=== PATIENT | female | born 1990 | race Caucasian/White ===

== ENCOUNTER 2020-09-10 02:26 | Outpatient (CLI) | payer MEDICAID, SELFPAY ==
[2020-09-10 15:02] LABS: Abs Immature Grans 0.07 10^3/uL (0.0-0.06); Absolute Basophil Count 0.01 10^3/uL (0.0-0.2); Absolute Eosinophil Count 0.04 10^3/uL (0.0-0.7); Absolute Monocyte Count 0.56 10^3/uL (0.1-0.8); Absolute Neutrophil Count 8.13 10^3/uL (1.2-6.7); Basophils % 0.1; Eosinophils % 0.4; HCT 34.3 % (36.0-46.0); HGB 11.6 g/dL (11.2-15.7); Immature Grans % 0.7; Lymphocytes % 17.7; MCH 28.9 pg (27.0-33.0); MCHC 33.8 % (32.0-36.0); MCV 85.3 fL (80-95); MPV 10.4 fL (8.0-11.0); Monocytes % 5.2; Neutrophils % 75.9; Nucleated RBC 0 %; Platelet Count 232 10^3/uL (130-400); RBC 4.02 10^6/uL (3.93-5.22); RDW 12.6 % (11.7-14.6); RDW-SD 39.4 fL; WBC 10.71 10^3/uL (4.4-10.8)
[2020-09-10 15:16] LABS: Glucose 119 mg/dL (74-106)
[2020-09-10 16:47] LABS: Hemoglobin A1C 5.1 % (<5.7)
[2020-09-14 14:18] LABS: HIV-1/2 Ag & Ab Screen Negative (Negative)
[2020-09-24 15:52] LABS: Syphilis Total Ab w/Reflex Nonreactive (Nonreactive); Varicella IgG Antibody Positive
== END 2020-09-10 02:46 ==
PROVIDERS: PCP Family Medicine; Visit Provider Advanced Practice Midwife
DX: Z34.91 Encounter for supervision of normal pregnancy, unspecified, first trimester (principal); Z11.4 Encounter for screening for human immunodeficiency virus [HIV]; Z01.84 Encounter for antibody response examination
CPT/HCPCS: 36415; 82947; 86787; 86850; 86900; 86901; 87389; 83036; 85025; 86780

== ENCOUNTER 2020-09-10 19:59 | Outpatient (REF) | payer MEDICAID, SELFPAY ==
[2020-09-10 21:39] LABS: *AMPHETAMINES SCREEN URINE Negative (Negative); *BARBITURATES SCREEN URINE POSITIVE (Negative); *BENZODIAZEPINES SCREEN URINE Negative (Negative); Cannabinoids THC POSITIVE (Negative); Cocaine Screen,Urine Negative (Negative); METHADONE URINE SCREEN Negative (Negative); OPIATES URINE SCREEN Negative (Negative)
[2020-09-10 22:14] LABS: Tricyclic Antidepressants Negative (Negative)
[2020-09-18 09:23] LABS: Buprenorphine Negative
== END 2020-09-10 20:19 ==
LOC: LBN 19:59
PROVIDERS: PCP Family Medicine; Visit Provider Advanced Practice Midwife
DX: Z34.91 Encounter for supervision of normal pregnancy, unspecified, first trimester (principal)
CPT/HCPCS: 80307; 87086

== ENCOUNTER 2020-09-15 03:21 | Outpatient (CLI) | payer MEDICAID, SELFPAY ==
[2020-09-15 07:58] LABS: Glucose,1 Hr (Glucola) 136 mg/dL (80-140)
== END 2020-09-15 03:41 ==
PROVIDERS: PCP Family Medicine; Visit Provider Obstetrics & Gynecology
DX: Z34.93 Encounter for supervision of normal pregnancy, unspecified, third trimester (principal); Z3A.36 36 weeks gestation of pregnancy
CPT/HCPCS: 36415; 82950

== ENCOUNTER 2020-09-28 02:57 | Outpatient (CLI) | payer MEDICAID, SELFPAY ==
[2020-09-28 09:50] LABS: Glucose 1 Hour 154 mg/dL
[2020-09-28 12:07] LABS: Glucose 3 Hour 128 mg/dL
[2020-09-28 14:18] LABS: *AMPHETAMINES SCREEN URINE Negative (Negative); *BARBITURATES SCREEN URINE POSITIVE (Negative); *BENZODIAZEPINES SCREEN URINE Negative (Negative); Cannabinoids THC POSITIVE (Negative); Cocaine Screen,Urine Negative (Negative); METHADONE URINE SCREEN Negative (Negative); OPIATES URINE SCREEN Negative (Negative)
[2020-09-28 14:22] LABS: Tricyclic Antidepressants Negative (Negative)
[2020-10-02 11:44] LABS: Buprenorphine Negative
== END 2020-09-28 03:17 ==
PROVIDERS: Advanced Practice Midwife; PCP Family Medicine; Visit Provider Advanced Practice Midwife
DX: Z34.93 Encounter for supervision of normal pregnancy, unspecified, third trimester (principal); Z36.85 Encounter for antenatal screening for Streptococcus B
CPT/HCPCS: 36410; 80307; 82951; 87081

== ENCOUNTER 2020-10-15 21:44 | Inpatient (IN) | payer MEDICAID, SELFPAY ==
[2020-10-15 22:50] VITALS: BP 112/76; PULSE 77
[2020-10-15 22:55] VITALS: BP 112/76; PULSE 77; RESP 18; TEMP 36.6
--- NOTE | 2020-10-15 22:56 | HPE_ITS ---
Date of service: 10/15/20 Time of Service: 22:56 Assessment and Plan Assessment and plan (1) 38 weeks gestation of : Status: Acute Assessment and plan: A: multipara, active labor, low risk Low risk for SD or PPH GBS negative P: Admit to BC, CBC and T&S, COVID swab Intermittent auscultation/expectant management after establishing category 1 tracing Comfort measures as desired Anticipate OB-HPI Labor/Delivery History of Present Illness Reason for Visit: R/O LABOR Chief Complaint: Uterine Contractions (Contractions irregularly all evening, become more intense after 2100, no ROM, no bleeding). RED Calculator Estimated Delivery Date Method Current WG Current Estimate 10/24/20 Ultrasound #1 38w 5d History of Present Expected Delivery Route/Plan - CNM FOB: Mann Mclean. (His fourth child, first with Magalie). GBS neg al Specific Issues/Plan 1. Transfer of care to [facility] @ 33.5 weeks. from [place] 2. MJ use aware of UDS and criteria for Vt. Safe poc. 2a. Pos THC and barbituate at 36 weeks,. Prescribed fioricet PRN, VT POSC done 10/06 with Olinda Quintero 3. Migraine - fioricet PRN, magnesium recommended daily 3a. Referral to Neuro ordered, Neuro attempted to schedule pt x3 without response from pt 10/05. 4. Elevated 1-hr GTT - 136. - 3-hr GTT scheduled 09/28/20 wnl x4. al 5. 09/28/20: 36 wk risk assessment low x3.al Assessment: History Reviewed & Current Review of Systems All systems reviewed & are unremarkable except as noted in HPI and below Constitutional Constitutional: Reports as per HPI Cardiovascular Cardiovascular: Reports system reviewed and no additional complaints, except as documented Respiratory Respiratory: Reports system reviewed and no additional complaints, except as documented Gastrointestinal Gastrointestinal: Reports as per HPI Genitourinary Genitourinary: Reports system reviewed and no additional complaints, except as documented Musculoskeletal Musculoskeletal: Reports system reviewed and no additional complaints, except as documented Neurologic Neurologic: Reports system reviewed and no additional complaints, except as documented Psychiatric Psychiatric: Reports as per HPI [facility] Medical History (Updated 10/15/20 @ 23:06 by Anita Childs) History of depression Migraines Surgical History (Updated 11/19/20 @ 14:40 by Virgilio Reddy CNM) H/O eye surgery Family History (Updated 09/10/20 @ 14:41 by Virgilio Reddy CNM) Brother Cancer midline carcinoma Social History (Updated 09/10/20 @ 14:43 by Virgilio Reddy CNM) Smoking/Tobacco Use Status: Former Tobacco Use Tobacco: How many years used: 12 Smoking risk assessment performed?: Yes Alcohol Intake: former Details: stopped w/ knowledge of Drug use: Daily Substance use type: marijuana Counseling given: Yes (09/10 20 al) Details: 09/10 20 handout given al Adopted: Yes Current gender identity: female History History 4 Para 2 Hx # Term Pregnancies 2 Multiple births 0 Hx # Pregnancies 0 Ectopic pregnancies 0 AB induced 1 Hx Number of Living Children 2 AB spontaneous 0 Past Pregnancies Del. Date GA/Weeks # Outcome Route Wgt Sex Labor Lgth Anesthes ia Location [facility] Complic 12/24/11 38 No Successful vaginal 8 lb 11 oz Male 8hrs [facility] 07/30/15 38 No Successful vaginal 8 lb 6 oz Female 8 hrs [facility] Delivery Date: 12/24/11 AllexAdrienne Mulkern, Kathleen Delivery Date: 07/30/15 Barbara, waterbirth Chelsie Arthur Meds Home Medications and Allergies Home Medications Medication Instructions Recorded Confirmed Type pediatric multivitamin 2 tab PO DAILY tab 08/19/20 10/13/20 History mgoyqossne-slcmlavdvqfef-lduhhwmc 1 cap PO TID PRN cap 10/13/20 10/13/20 History 50 mg-300 mg-40 mg capsule Allergies Allergy/AdvReac Type Severity Reaction Status Date / Time bee venom protein (honey bee) Allergy Severe Verified 10/13/20 14:37 Exam Physical Exam Vital signs: Pulse BP 77 112/76 10/15/20 22:50 10/15/20 22:50 Vital Signs Reviewed: Yes Constitutional Constitutional: moderate distress and average body habitus Detailed Labor and Delivery Exam Dilation: 6 Effacement (%): 100 station: -2 Cervix position: posterior Consistency: soft Amniotic Membrane Status: Intact Monitor Mode: External Contraction Frequency(min): every 2-3 minutes Contraction Intensity: Moderate/Strong Fetus A Heart Rate Baseline: 140 Monitor Accelerations: Present Monitor Decelerations: Early Variability: Moderate (6-25 BPM) Presentation: Cephalic Categories: Category I Est. Weight: 8 lb 2.514 oz Est. Weight: 3700 gm HEENT Exam HEENT Exam: Normal Neck Exam Neck Exam: Normal Chest/Brest/Axilla Exam Chest Exam: Normal Breast Exam Breast Exam: Normal Respiratory Exam Respiratory Exam: Normal Cardiovascular Exam Cardiovascular Exam: Normal Abdominal Exam Abdominal Exam: Normal (soft, nontender, gravid) Rectal Exam Rectal Exam: Not Done Exam Exam: Normal Extremities Exam Extremities Exam: Normal Back/Spine/Pelvis Exam Back Exam: Normal Pelvis Adequate: Yes Skin Exam Skin Exam: Normal Neurological Exam Neurological Exam: Normal Psychiatric Exam Psychiatric Exam: Normal Results Results Group Beta Strep: Negative Blood Type: A+ Rubella Status: Immune Varicella Immunity: Immune Risk Assessment Risk for Shoulder Dystocia Historical/Initial OB: NEGATIVE FOR: Pelvic Abnormality, Pre- BMI>30, Previous Shoulder Dystocia or Previous Macrosomia Increased Risk?: No Counselin09/10/20 al Date/Initial: iob as transfer 09/10/20 low risk al Delivery Plan @ 36wks: 09/28/20 elevated gct yet gtt of today nml x4. al Risk for Pre-Eclampsia Daily Dose ASA Indicated: No Date Initiated/Initials: 09/10/20 al Yes, if one or more: NEGATIVE FOR: Hx Pre-E/Gest HTN, Chronic HTN, Multiple Gestation, Pre-gestational DM, Renal Disease, Systemic Lupus or APA Syndrome Yes, if 2 or more: NEGATIVE FOR: Nulliparity, Age>= 35 yrs, >10yr btwn pregnancies, BMI>30, ethinicty, Mother/Sister w/ Pre-E or Previous IUGR Risk for Post- Hemorrhage Initial: NEGATIVE FOR: Multiple Gestation, Previous PPH, Known Clotting Deficiency, Grand Multiparity or Anticoagulation At Risk?: No Risks Reviewed Risks Reviewed Upon Admission: Yes
[2020-10-15 23:19] LABS: HCT 37.1 % (36.0-46.0); HGB 12.1 g/dL (11.2-15.7); MCH 28.1 pg (27.0-33.0); MCHC 32.6 % (32.0-36.0); MCV 86.1 fL (80-95); Platelet Count 244 10^3/uL (130-400); RBC 4.31 10^6/uL (3.93-5.22); RDW 14.1 % (11.7-14.6); WBC 13.96 10^3/uL (4.4-10.8)
[2020-10-15 23:21] LABS: Source Nasopharynx
[2020-10-15 23:38] VITALS: PULSE 80
[2020-10-15] MEDS: Oxytocin 10 UNITS/ML VIAL IM (23:55)
[2020-10-16] VITALS (11 sets, daily range): BP systolic 98–124; BP diastolic 53–69; PULSE 66–88; RESP 14–18; TEMP 36.7–36.9; O2SAT 97–98
[2020-10-16 00:01] LABS: Influenza A PCR Negative (Negative); Influenza B PCR Negative (Negative); RSV PCR Negative (Negative)
[2020-10-16 00:05] LABS: COVID-19 PCR POSITIVE (Negative)
--- NOTE | 2020-10-16 01:26 | W.OBDELIVERY ---
Date of service: 10/16/20 Time of Service: 01:26 OB Labor/ Delivery Information Baby A Delivery Delivery Method: Spontaneaous Presentation: Cephalic Cephalic Position: Vertex Vertex Position: Right Occipital Posterior Breech Position: N/A Cord Description-Baby A: 3 Vessels and Nuchal Cord (x1 reduced overhead) Amniotic Fluid: Clear Estimated Blood Loss: 250 Delivery Outcome: Liveborn Transferred: Remains with Mother Providers Nurse Clinical Admissions Manager: Anita Childs Nurse: Yahaira Keith Nurse: Katharine Savage Labor/Delivery Information Number of Babies in Womb: 1 Steroids Given: None Reason Steroids Not Administered: N/A Group Beta Strep: Negative Rubella Status: Immune Blood Type: A+ Varicella Immunity: Immune Maternal Complications: None Shoulder Dystocia: No Note: Pt arrived 6 cm dilated, within 20 minutes was feeling urges to push and requested to move to the tub, pt entered the tub @ 2220, urges to push increased steadily and pt began involuntarily bearing down, 2nd stage huddle completed, SVE in tub for full dilation @ 2342, SROM clear fluid shortly thereafter, of a vigorous female over intact perineum, loose nuchal cord reduced overhead, baby placed immediately into mother's arms, apgars 6/9, [place] placenta followed 8 minutes later, cord then clamped and cut by FOB, 10 units pitocin IM given, cord blood collected. Family bonding with pt and baby in tub for a period of time, then pt moved to bed for recovery. Once pt settled in bed, lab called to notify that pt's inhouse covid test results positive. Nursing wood crew supervisor notified, pt & FOB & baby moved to isolation birthing room. Both parents showered, performed hand hygiene and put on masks, isolette in room in place of open pram. Parents instructed in procedures to protect the baby from infection. Family bonding is excellent. Stages of Labor Onset of Labor Date: 10/15/20 Onset of Labor Time: 17:00 Complete Dilatation Date: 10/15/20 Complete Dilatation Time: 23:42 Labor - Stage 1 Duration: 0 minutes ROM Baby A: 10/15/20 ROM Baby A: 23:47 ROM Total Time- Baby A: [id number] Infant Delivery Date-Baby A: 10/15/20 Infant Delivery Time-Baby A: 23:50 Labor Stage 2 Duration: 8 minutes Placenta Delivery Date-Baby A: 10/15/20 Placenta Delivery Time-Baby A: 23:58 Labor-Stage 3 Duration: 8 minutes Total Length of Labor-Baby A: 6 hours and 50 minutes Placenta Status: Delivered Baby A Gender: Female Gestational Status: Term (39-41.6 wks) Gestational Age in Weeks/Days: 39 Weeks and 6 Days weight: 7 lb 15.868 oz Weight Comment: 3625 gms Score-1 Minute Interval(Baby A) Heart Rate-1 minute: 100 BPM or Greater Respiratory Effort- 1 minute: Slow Respiration/Weak Cry Muscle Tone-1 minute: Minimal Flexion/Extension Reflex Response-1 minute: Minimal Response Color-1 minute: Bluish Hands or Feet Total Score-1 minute: 6 Score-5 Minute Interval(Baby A) Heart Rate- 5 minute: 100 BPM or Greater Respiratory Effort-5 minute: Spontaneous/Strong Cry Muscle Tone-5 minute: Active Movement Reflex Response-5 minute: Prompt Response Color-5 minute: Bluish Hands or Feet Total Score- 5 minute: 9 Procedure Procedures: Cord Blood Collection
[2020-10-16] MEDS: Ibuprofen 600 MG TAB PO ×3 (01:45→21:45)
--- NOTE | 2020-10-16 04:02 | NUR.NOTE ---
Twenty minutes after delivery patient was discovered to be COVID-19 positive. Transferred to negative pressure room 301 where she immediately showered. Instructed she must always wear mask, perform hand hygiene before handling baby, and that baby must sleep in isolette when mother or father are not holding, feeding. Nasopharyngeal swab performed on SO, he is negative for COVID-19. Parents both understand they may not leave the room. Pt has no outward signs or symptoms of COVID-19.
[2020-10-16] MEDS: Acetaminophen 325 MG TAB 650 MG PO ×2 (06:25→11:38)
--- NOTE | 2020-10-16 11:15 | W.PM.OBPNV1 ---
Date of service: 10/16/20 Time of Service: 11:16 Assessment and Plan Assessment and plan (1) Term delivered: Status: Acute Assessment and plan: A: PPD#1, 11 hours , nml recovery, stable COVID positive, asymptomatic, Pt has been instructed & is observing all recommended guidelines (mask, hand/resp hygiene when handling baby) Competently caring for self and baby Verbalizes understanding of 10 day quarantine here and at home d/t COVID status P: Pt is considering being discharged to boarder status Baby not to be discharged until tomorrow Plans f/up in 2 weeks for TL consent appt with Written instructions reviewed and given to pt Will plan 1 wk PP phone call to check in with pt Subjective Subjective Patient comments: No complaints, Pain well controlled, Tolerating diet and Flatus present [place] baby status: Doing well, Nursing well, Rooming in (COVID precautions and guidelnes in effect and parents are observing them. Baby in isolette when not being held or .) and Strong Bonding Observed feeding status: Exclusively breast feeding Exam Physical Exam Vital signs: Temp Pulse Resp BP Pulse Ox 98.2 F 79 14 104/61 97 10/16/20 09:00 10/16/20 09:00 10/16/20 09:00 10/16/20 09:00 10/16/20 03:00 Vital Signs Reviewed: Yes Constitutional Constitutional: no acute distress and average body habitus HEENT Exam HEENT Exam: Normal Neck Exam Neck Exam: Normal Breast Exam Bilateral: Breast Exam: Normal and Soft Nipple Exam: Normal and Uninjured Respiratory Exam Respiratory Exam: Normal Cardiovascular Exam Cardiovascular Exam: Normal Abdominal Exam Abdomen: Other (soft, nontender) Fundal Exam Fundus: Below Umbilicus and Firm Rectal Exam Rectal Exam: Not Done Exam Perineum: Intact and Normal Extremities Exam Extremity Exam: Normal Back/Spine/Pelvis Exam Back Exam: Normal Skin Exam Skin Exam: Normal Neurological Exam Neurological Exam: Normal Psychiatric Exam Psychiatric Exam: Normal (happy, tired) Results Hemoglobin/Hematocrit: Hgb 12.1 g/dL (11.2-15.7) 10/15/20 23:00 Hct 37.1 % (36.0-46.0) 10/15/20 23:00 Abnormal Lab Findings: Abnormal Labs 10/15/20 10/15/20 23:00 23:00 WBC 13.96 H SARS-CoV-2 (PCR) Positive A
--- NOTE | 2020-10-16 12:45 | NUR.NOTE ---
Mom given the option of being discharged to boarder status and remain with baby, or remaining as an inpatient. Husand and patient will talk it over and make a decision. Ater discussion mom decided to remain as a patient and be discharged tomorrow with baby. Dad will go home later in afternoon and understands he can't return due to Mom's Covid status.Nursing Note:
[2020-10-17 04:50] VITALS: TEMP 36.4
[2020-10-17] MEDS: Ibuprofen 600 MG TAB PO (08:37)
[2020-10-17] MEDS: Acetaminophen 325 MG TAB 650 MG PO (08:37)
[2020-10-17 09:03] VITALS: BP 119/76; PULSE 68; RESP 14; TEMP 36.8; O2SAT 99
--- NOTE | 2020-10-17 10:59 | W.PM.OBPNV1 ---
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, telehealth is an option Subjective Subjective Patient comments: Pain well controlled and Tolerating diet [place] baby status: Doing well, Nursing well, Rooming in and Strong Bonding Observed [place] feeding status: Exclusively breast feeding Exam Physical Exam Vital signs: Temp Pulse Resp BP Pulse Ox 98.2 F 68 14 119/76 99 10/17/20 09:03 10/17/20 09:03 10/17/20 09:03 10/17/20 09:03 10/17/20 09:03 Results Hemoglobin/Hematocrit: Hgb 12.1 g/dL (11.2-15.7) 10/15/20 23:00 Hct 37.1 % (36.0-46.0) 10/15/20 23:00 Abnormal Lab Findings: Abnormal Labs 10/15/20 10/15/20 23:00 23:00 WBC 13.96 H SARS-CoV-2 (PCR) Positive A
--- NOTE | 2020-10-17 11:02 | DSE_ITS ---
Date of service: 10/17/20 Time of Service: 11:03 DS: Diagnosis Discharge Diagnosis (1) Term delivered: Status: Acute (2) COVID-19 virus detected: Status: Acute Discharge Plan Disposition Patient Disposition: HOME Condition: Good Discharge Details Reason For Visit: R/O LABOR Admit Date/Time: 10/15/20 22:44 Admit Provider: Anita Childs Attending Provider: Anita Childs Primary Care Provider: Julieth Leal Hospital Course Hospital Course: within an hour of admission, nml PP course, COVID swab+ Home Meds and New Rx's Prescriptions: No Action imlpcqinnd-yutzcjvmnlaso-cihi [Fioricet] 50-300-40 mg capsule 1 cap PO TID PRN (Reason: pain) RF: 0 Flintstones Multivitamin Tablet,Chewable 2 tab PO DAILY RF: 0 Discharge Instructions Additional Instructions: Please call [facility] at [phone] to make an appointment in [address] Chan or Dr. Reid to discuss plans for tubal ligation. Also make an appointment for 6 weeks with your flexible machining system machinist. Please continue to wear a mask and use strict hand hygiene when holding or feeding your baby for 10 days, observe a 10 day quarantine at home. Please report any symptoms of illness promptly to your flexible machining system machinist Your flexible machining system machinist will call in about a week just to check in. Stand Alone Forms: BC Instructions, NB Instructions, BC Post Vaginal Deliver Activity:: Activity as Tolerated Equipment/Supplies:: No Equipment Needed Diet:: Normal Diet Discharge Orders Discharge Orders: Discharge Order (Routine); Ordered 10/17/20 Ordered By: Anita Childs OB:DS Summary Summary Vaginal Delivery Method: Spontaneaous Episiotomy Description: None Contraception Discussed Contraception Discussed: Yes (will sign consent with MD rojas at 2 weeks ) Contraceptive Plan: Tubal Ligation, [place] Infant Gender-Baby A: Female weight: 7 lb 15.868 oz Status at Discharge Functional status at discharge: independent ambulation Overall status at discharge: patient is back to baseline Mental Status: mental status grossly normal Speech and Movement: speech and movement normal and speech clear Mood: congruent mood Affect: normal affect Exam Physical Exam Vital signs: Temp Pulse Resp BP Pulse Ox 98.2 F 68 14 119/76 99 10/17/20 09:03 10/17/20 09:03 10/17/20 09:03 10/17/20 09:03 10/17/20 09:03 Constitutional Constitutional: no acute distress and average body habitus HEENT Exam HEENT Exam: Normal Neck Exam Neck Exam: Normal Breast Exam Bilateral: Breast Exam: Normal and Soft Respiratory Exam Respiratory Exam: Normal Cardiovascular Exam Cardiovascular Exam: Normal Abdominal Exam Abdomen: Other (soft, nontender) Fundal Exam Fundus: Below Umbilicus and Firm Rectal Exam Rectal Exam: Not Done Exam Perineum: Intact and Normal Extremities Exam Extremity Exam: Normal Back/Spine/Pelvis Exam Back Exam: Normal Skin Exam Skin Exam: Normal Neurological Exam Neurological Exam: Normal Psychiatric Exam Psychiatric Exam: Normal (happy, tired) [facility] Medical History (Updated 10/17/20 @ 11:03 by Anita Childs) History of depression Migraines Surgical History (Updated 09/10/20 @ 14:40 by Virgilio Reddy CNM) H/O eye surgery Family History (Updated 09/10/20 @ 14:41 by Virgilio Reddy CNM) Brother Cancer midline carcinoma Social History (Updated 09/10/20 @ 14:43 by Virgilio Reddy CNM) Smoking/Tobacco Use Status: Former Tobacco Use Tobacco: How many years used: 12 Smoking risk assessment performed?: Yes Alcohol Intake: former Details: stopped w/ knowledge of Drug use: Daily Substance use type: marijuana Counseling given: Yes (09/10 20 al) Details: 09/10 20 handout given al Adopted: Yes Current gender identity: female Do you feel safe at home: Yes Do you feel safe in your relationship?: Yes History History 4 Para 2 Hx # Term Pregnancies 2 Multiple births 0 Hx # Pregnancies 0 Ectopic pregnancies 0 AB induced 1 Hx Number of Living Children 2 AB spontaneous 0 Past Pregnancies Del. Date GA/Weeks # Outcome Route Wgt Sex Labor Lgth Anesthes ia Location [facility] Complic 12/24/11 38 No Successful vaginal 8 lb [address] [facility] 07/30/15 38 No Successful vaginal 8 lb 6 oz Female [address] [facility] Delivery Date: 12/24/11 Adrienne Lee Mulkern, Kathleen Delivery Date: 07/30/15 Barbara, waterChelsie Adkins DS: Data Vitals/I&O Vitals and I&O: Vital Signs Temperature 98.2 F 10/17/20 09:03 Pulse 68 10/17/20 09:03 Pulse Rhythm Regular 10/17/20 09:03 Respiratory Rate 14 10/17/20 09:03 Blood Pressure 119/76 10/17/20 09:03 Blood Pressure Mean 90 10/17/20 09:03 Pulse Oximetry 99 10/17/20 09:03 Oxygen Delivery Method Room Air 10/15/20 22:55 Oxygen Flow Rate 0 10/15/20 22:55 Pain Level 4 10/17/20 09:03 Intake & Output 10/16/20 10/16/20 10/17/20 11:59 23:59 11:59 Other: Urine Color Yellow
== END 2020-10-17 12:20 | disposition home or self-care (01) | DRG 805 ==
PROVIDERS: Admitting Provider Advanced Practice Midwife; PCP Family Medicine; Visit Provider Advanced Practice Midwife
DX: O99.354 Diseases of the nervous system complicating childbirth (principal); U07.1 COVID-19; Z37.0 Single live birth; O98.52 Other viral diseases complicating childbirth; Z3A.38 38 weeks gestation of pregnancy; F12.90 Cannabis use, unspecified, uncomplicated; O99.324 Drug use complicating childbirth; G43.909 Migraine, unspecified, not intractable, without status migrainosus; O69.81X0 Labor and delivery complicated by cord around neck, without compression, not applicable or unspecified
CPT/HCPCS: 85027; 86850; 86900; 86901; J2590

== ENCOUNTER 2020-12-17 08:56 | Outpatient (REF) | payer MEDICAID, SELFPAY ==
--- NOTE | 2020-12-17 08:45 | PAPFT_PTH ---
PATIENT: Magalie Farah LOC: [facility] U#:[id number] AGE/SX: 30/F ROOM: RE12/17/[address]: Francoise Chan : 1990 BED: DIS: 12/17/2020 SPEC #: [id number] RECD: 12/17/20 12:59 STATUS: LAUREN GABY #: [id number] MINERVA: 12/17/20 08:[address]: Francoise Chan DEPT: [facility] Cytology RECD BY: Lana Costa ENTERED: 12/17/20 13:00 SP TYPE: PAPFT OTHR DR: Rickie Paul, [place] Tissues: 1 - CX/ENDOCX FOR PAP SMEARS Procedures: PAP THIN PREP/UVM Screening HPV DNA PROBE Comments: [id number]
== END 2020-12-17 08:57 | disposition home or self-care (01) ==
LOC: LBN 08:56
PROVIDERS: PCP Nurse Practitioner Family; Visit Provider Obstetrics & Gynecology Gynecology
DX: Z12.4 Encounter for screening for malignant neoplasm of cervix (principal); Z11.51 Encounter for screening for human papillomavirus (HPV)
CPT/HCPCS: 88142; 87624

== ENCOUNTER 2022-02-15 09:47 | Emergency (ER) | payer SELFPAY ==
[2022-02-15 09:52] VITALS: BP 120/73; PULSE 73; RESP 16; TEMP 37.3; O2SAT 98
--- NOTE | 2022-02-15 10:00 | DI.US_ITS ---
Exam(s) US LOWER EXTREMITY VENOUS LT EXAM: US LOWER EXTREMITY VENOUS LT CLINICAL HISTORY: LL swelling TECHNIQUE: Left lower extremity venous ultrasound performed using grayscale, color-flow, and spectra l Doppler analysis. COMPARISON: No exams were available for comparison FINDINGS: The left common femoral, femoral and popliteal veins demonstrate normal compressibility, augmentation , and color Doppler. The posterior tibial veins are patent. The saphenofemoral junction is unremarka ble. There is a 9.9 x 2.5 x 5.6 cm Obrien's cyst. The soft tissues are unremarkable. IMPRESSION: 1. No DVT. 2. Obrien cyst. 3. Results of this exam have been verbally communicated with provider. DATA REPOSITORY:
--- NOTE | 2022-02-15 10:14 | ED.GENADUL_ITS ---
Discharge Plan Disposition Patient Disposition: HOME Condition: Improving Discharge Details Clinical Impression: Obrien's cyst, unruptured Primary Care Provider: Rickie Paul ED Provider: Mina Bradn Home Meds and New Rx's Prescriptions: New cephalexin 500 mg capsule 500 mg PO TID 5 Days Qty: 15 0RF Discharge Instructions Instructions: Obrien Cyst (ED) Additional Instructions: Elevate the leg above the level of heart to reduce pain and swelling. May apply compression bandage while awake and out of bed for comfort. May apply ice to area to reduce discomfort. Our care management team will help you reestablish care at [facility]. We have referred you to orthopedics as well. If you have not heard from the clinic in 3 days please call [phone] for a follow-up appointment time. Please take antibiotics as prescribed for possible early cellulitis. Return to ER for any acute concerns. Stand Alone Forms: Work Release Medical Decision Making 31-year-old female presents with 1 week of left knee and now calf swelling that was worsened by Long drive to [facility] and back. She has not had fever, chills, chest pain, cough or short of breath. She arrives with normal vital signs and exam that is concerning for left lower extremity DVT. Patient referred for ultrasound which reveals: Negative for dvt. There is evidence of a large Obrien's cyst. We will refer her to orthopedics as it may require drainage does not self resolve. She has faint overlying erythema and I will empirically treat her for the possibility of a slight cellulitis. We have asked for follow-up in both primary care as well as orthopedic clinic. HPI General Date/Time Provider Initiated Documentation: 02/15/22 09:48 . Limitations to Documentation: no limitations . Information obtained by: patient . History of Present Illness 31 year old F presents to the emergency department with the chief complaint of Left lower extremity swollen, described as moderate, Quality is described as dull and constant, and is localized to the left and lower extremity. Patient reports no radiation. Patient started experiencing this day(s) and it has been constant. improves with No relieving factors improve symptom(s), No exacerbating factors reported . Patient notes denies chest pain and shortness of breath. Patient did receive the following treatments prior to arrival, none Related Data Home Medications Medication Instructions Recorded Confirmed cephalexin 500 mg capsule 500 mg PO TID 5 Days #15 cap 02/15/22 Previous Rx's Medication Instructions Recorded cephalexin 500 mg capsule 500 mg PO TID 5 Days #15 cap 02/15/22 Allergies Allergy/AdvReac Type Severity Reaction Status Date / Time bee venom protein (honey bee) Allergy Severe Verified 02/15/22 10:00 General Stated Complaint: Cellulitis ADRIANE: 3 Review of Systems Narrative: Denies chest pain or shortness of breath. No fever or chills. No bites or skin breakdown. No fall or trauma. She had otherwise been well. 8 systems were reviewed and otherwise negative PFS All Active Problems (Updated 02/15/22 @ 11:47 by Mina Brand MD) Obrien's cyst, unruptured (Acute) IUD surveillance (Acute) Encounter for IUD insertion (Acute) ADD (attention deficit disorder) (Acute) IUD (intrauterine device) in place (Acute) History of depression (Acute) Marijuana smoker (Acute) Migraines (Acute) Medical History General counseling and advice on contraceptive management 10/2020. Counseled during her regarding sterilization. Has decided upon LARC. History of smoking Quit in 2011 Neck pain Surgical History H/O eye surgery Family History Brother , 29 Cancer midline carcinoma Sister Depression Social History Smoking/Tobacco Use Status: Former Tobacco Use tobacco type: cigarettes Quit Date: 10/23/11 Tobacco: How many years used: 10 Second Hand Exposure: Yes Smoking risk assessment performed?: Yes Alcohol Intake: current Alcohol Intake frequency: a few times a week Alcohol type: wine Drug use: Daily Substance use type: marijuana Adopted: Yes Caregiver/Support person: No Household members: spouse, children and other Details: Atul-Syed Darnell D-Lilly, D-Julia Housing: house Number of Children: 3 Communication Needs: Corrective Lenses Do you need help understanding health information?: Rarely Pets and animals: Yes Pets and animals: cat(s), dog(s) and other Details: lizard Sexually active: Yes Do you think of yourself as: straight/heterosexual Current gender identity: female What is your relationship status?: How often do you talk on the phone with friends or family?: once per week How often do you get together with friends or relatives?: never How often do you attend rastafarian or anabaptist services?: 4 or more times per year Do you belong to any clubs or organized social groups?: no Panel score (0-1 are the most socially isolated patients): 2 What type of physical activity do you participate in: walking Duration: 30-45 minutes/day Frequency: daily [place]icruz/Amish: Unitarian Universalist Seatbelt use: always Helmet use: Yes Drive intox or ride w/intox tow truck driver: No Do you feel safe at home: Yes Do you feel safe in your relationship?: Yes Female Reproductive History Menstrual control method: progestin IUCD History History 4 Para 3 Hx # Term Pregnancies 3 Multiple births 0 Hx # Pregnancies 0 Ectopic pregnancies 0 AB induced 1 Hx Number of Living Children 3 AB spontaneous 0 Past Pregnancies Del. Date GA/Weeks # Outcome Route Wgt Sex Labor Lgth Anesthes ia Location [facility] 12/24/11 38 No Successful vaginal 3940.584 g Male 8hrs [facility] 07/30/15 38 No Successful vaginal 3798.836 g Female 8 hrs [facility] 10/15/20 39 No Successful vaginal 3623.069 g Female Anita Childs Delivery Date: 12/24/11 Last Updated by: Chelsie Arthur CNM [facility], Water[facility], Delivery Date: 07/30/15 Last Updated by: [facility]: [facility] Last Updated by: Liana Vincent. Pt + Covid test at time of delivery. No sequelae. Exam Narrative Exam Narrative: GEN: awake, alert, oriented 3. Pleasant, well groomed, interactive. HEAD: Normocephalic, atraumatic ENT: Mucous membranes moist, oropharynx unremarkable, External ear exam unremarkable EYES: PERRL, EOMI NECK: Full ROM, no VINAY, no menigismus CHEST/RESP: Nontender, clear to auscultation bilateral, no wheeze/rhonchi/rales CARDIOVASCULAR: RRR, no murmur, rub tommie. 2+ Rad pulse bilateral ABDOMEN: Soft, nontender, no mass. +Bowel sounds EXT: Full ROM, the left leg and calf are edematous with greater than 5 cm increased circumference left versus right. There is palpable cord on the left medial proximal calf Neuro: Grossly normal neurologic exam, conversant, interactive. Psych: Speech fluent, thoughts congruent, affect normal Course Vital Signs Vital signs: Vital Signs Temperature 37.3 C 02/15/22 09:52 Pulse 73 02/15/22 09:52 Respiratory Rate 16 02/15/22 09:52 Blood Pressure 120/73 02/15/22 09:52 Pulse Oximetry 98 02/15/22 09:52 Temperature 37.3 C 02/15/22 09:52 Pulse 73 02/15/22 09:52 Respiratory Rate 16 02/15/22 09:52 Blood Pressure 120/73 02/15/22 09:52 Pulse Oximetry 98 02/15/22 09:52 Pain Level 6 02/15/22 09:52
--- NOTE | 2022-02-15 11:36 | NUR.NOTE ---
Nursing Note: Referral faxed to [facility] (Rickie Paul) for DVT, in 1 week. Joanie Newell
== END 2022-02-15 11:57 | disposition home or self-care (01) ==
PROVIDERS: Emergency Provider Emergency Medicine; PCP Nurse Practitioner Family
DX: M71.22 Synovial cyst of popliteal space [Baker], left knee (principal)
CPT/HCPCS: 99284; 93971; 99283

== ENCOUNTER 2022-03-07 03:25 | Outpatient (CLI) | payer MEDICAID, SELFPAY ==
[2022-03-07 14:15] LABS: ESR 12 mm/hr (0-20)
[2022-03-07 15:03] LABS: C-Reactive Protein 0.91 mg/dL (0.0-0.3)
[2022-03-07 22:33] LABS: Rheumatoid Factor <8.6 IU/mL (<12.0)
[2022-03-08 10:40] LABS: Lyme Ab w Rflx to Lyme Confirm Positive (Negative)
[2022-03-08 11:19] LABS: Lyme IgG Ab Positive (Negative); Lyme IgM Ab Positive (Negative)
[2022-03-08 15:24] LABS: ANA Interpretation Positive (Negative); ANA Titer Pattern 1:640 Speckled
[2022-03-09 07:50] LABS: Anaplasma phagocytophilum Negative (Negative); B. miyamotoi PCR Negative (Negative); Babesia divergens/MO-1 Negative (Negative); Babesia duncani Negative (Negative); Babesia microti Negative (Negative); Ehrlichia chaffeensis Negative (Negative); Ehrlichia ewingii/canis Negative (Negative); Ehrlichia muris eauclairensis Negative (Negative)
== END 2022-03-07 03:26 | disposition home or self-care (01) ==
LOC: LBO 03:25
PROVIDERS: PCP Nurse Practitioner Family; Visit Provider Physician Assistant Surgical
DX: M25.562 Pain in left knee (principal); M25.462 Effusion, left knee; M25.59 Pain in other specified joint; M71.22 Synovial cyst of popliteal space [Baker], left knee
CPT/HCPCS: 36415; 85652; 86617; 87798; 86038; 86140; 86431; 86618